=== PATIENT | female | born 1945 | race Caucasian/White ===

== ENCOUNTER 2019-02-25 15:04 | Inpatient (IN) ==
[2019-02-26] MEDS ORDERED: *HR* LORazepam 0.5 MG TABLET PO PRN (11:44)
[2019-02-26] MEDS ORDERED: *HR* Methotrexate 2.5 MG TABLET PO SCH (11:45)
[2019-02-26] MEDS ORDERED: Magic Mouthwash 10 ML UD Cup PO PRN (11:50)
[2019-02-26] MEDS ORDERED: Hyoscyamine SL 0.125 MG TAB.SUBL SL PRN (11:53)
--- NOTE | 2019-02-26 12:35 | Pallative History & Physical ---
<Poornima Castillo B - Last Filed: 02/26/19 16:04> Date of Encounter: 02/26/19 Time of Encounter: 12:05 Assessment and Plan (1) Palliative care encounter Current visit: Yes Status: Acute Patient admitted for 5 day stay respite care at this time - Home medications were restarted - Patient has had a decreased appetite over the last 3 days, this may be due to a progression of the patient's current disease process. Patient was encouraged to eat only when she felt like she wanted to eat something - Patient's pain is currently well controlled on her home medications - Patient is a DNR-CCA (2) Lung cancer Current visit: No Status: Chronic Qualifiers: Laterality: left Lung location: hilum of lung Qualified Code(s): C34.02 - Malignant neoplasm of left main bronchus (3) COPD (chronic obstructive pulmonary disease) Current visit: No Status: Chronic Qualifiers: Qualified Code(s): J44.9 - Chronic obstructive pulmonary disease, unspecified (4) Dyspnea Current visit: No Status: Chronic Qualifiers: Dyspnea type: unspecified Qualified Code(s): R06.00 - Dyspnea, unspecified (5) Hypoxia Current visit: No Status: Chronic (6) Hypertension Current visit: No Status: Chronic Qualifiers: Hypertension type: essential hypertension Qualified Code(s): I10 - Essential (primary) hypertension (7) Hypothyroidism Current visit: No Status: Chronic Qualifiers: Hypothyroidism type: unspecified Qualified Code(s): E03.9 - Hypothyroidism, unspecified Internal Medicine - H&P: HPI Chief complaint: Resite Care Admitted From: Home Plans for Post Hospital Care: Hospice - Home History of present illness: Ms. Crowell is a 73 year old female who is a patient of [facility] care with a past medical history of left lung cancer, end stage COPD, respiratory failure with hypoxia, hypothyroidism, and HTN, presenting today for respite care. SHe reports that overall she is doing ok. She denies any pain concerns at this time. She reports that she is using nasal cannula at home with a level of 3-5. SHe reports that she always has issues with her breathing however it has not changed from her baseline level. She denies chest pain. She does report some nausea at times but denies vomiting. She reports that she has had a decreased ap petite and that she has not eaten for the last 3 days. She says she has decreased the amount of ensure that she has been taking. She reports that prior she was not eating well, but would eat things like pudding, jello and apple sauce. Past Med Surg Social Fam HX - Past Medical History Medical history: arthritis, cancer, COPD, GERD, RA, thyroid disease Psychiatric history: no psych history - Past Surgical History Surgical History: appendectomy, cholecystectomy Additional surgical history: Carpal Tunnel - Social History Smoking Status: Current every day smoker Alcohol use: none Drug use: none - Family History Mother History Unknown: Yes Internal Medicine - H&P: Meds RX: Albuterol Sulfate [Proair Hfa] 1 puff IH Q6-8H PRN 07/13/18 [History] RX: Alendronate Sodium [Fosamax] 70 mg PO BLEVINS 07/13/18 [History] RX: Atenolol [Tenormin] 50 mg PO DAILY 07/13/18 [History] RX: Folic Acid 1 mg PO DAILY 07/13/18 [History] RX: Hydroxychloroquine [Plaquenuil] 400 mg PO DAILY 07/13/18 [History] RX: Methotrexate [Otrexup] 20 mg PO FR 07/13/18 [History] RX: Umeclidinium [place] [Incruse Ellipta] 1 puff IH DAILY 07/13/18 [History] RX: hydroCHLOROthiazide [Hydrochlorothiazide] 25 mg PO DAILY 07/13/18 [History] RX: Fluticasone/Salmeterol [Advair 250-50 Diskus] 1 puff PO BID 07/14/18 [History] RX: Levothyroxine [Synthroid] 100 mcg PO QAM 07/14/18 [History] RX: Albuterol Neb [Proventil Neb] 2.5 mg IH Q6H PRN 01/30/19 [History] RX: LORazepam [Ativan] 0.5 mg PO TID PRN 01/30/19 [History] RX: Lactose-Reduced Food [Ensure Liquid] 1 bottle PO BID 01/30/19 [History] RX: Magic Mouthwash [Magic Mouthwash BLM] 5 ml PO QID PRN 01/30/19 [History] RX: Morphine Oral CONC [Roxanol] 5 - 20 mg PO Q1H PRN 01/30/19 [History] RX: Potassium Chloride [K-Tab ER] 10 meq PO BID 01/30/19 [History] RX: dexAMETHasone [Decadron] 4 mg PO DAILY PRN 01/30/19 [History] RX: traZODone [TraZODone] 50 mg PO HS 01/30/19 [History] RX: Ciprofloxacin [Cipro] 500 mg PO BID 5 Days #10 tablet 01/31/19 [Rx] RX: Nystatin [Nystatin Suspension] 5 ml PO QID 5 Days #20 oral.susp 01/31/19 [Rx] Allergy/AdvReac Type Severity Reaction Status Date / Time No Known Allergies Allergy Unverified 03/04/15 13:53 - Constitutional Constitutional ROS PAL: decreased appetite, anorexia - EENT Eyes: no pain Ears, nose, mouth, throat: no mouth pain - Cardiovascular Cardiovascular ROS: no chest pain - Respiratory Respiratory: dyspnea - Gastrointestinal Gastrointestinal: nausea, no abdominal pain, no diarrhea, no vomiting - Musculoskeletal Musculoskeletal ROS IM: muscle weakness - Integumentary ROS Integumentary: no dry skin - Neurological Neurological ROS: no confusion Palliative Care-Exam - Constitutional General appearance: Present: no acute distress, thin - Head Head Exam: Present: atraumatic, normocephalic - Eye Eye exam: Present: normal appearance - ENT ENT exam: Present: mucous membranes moist - Neck Neck exam: Present: full ROM - Respiratory Respiratory exam: Present: decreased breath sounds, wheezes - Cardiovascular Cardiovascular exam: Present: RRR, +S1, +S2 - GI/Abdominal Exam GI/Abdominal exam: Present: soft. Absent: tenderness - Rectal Rectal exam: Present: deferred - Extremities Exam Extremities exam: Absent: pedal edema - Neurological Exam Neurological exam: Present: alert, oriented X3 Palliative Quality Palliative Quality: Screen for Code Status: Yes, Screen for Goals of Care: Yes, Screen for Pain: Yes, Screen for Nausea/Vomitting: Yes Code Status: 02/26/19 11:39 Resuscitation Status: Active [RES] Routine Comment: Resuscitation Status: DNR-Comfort Care-Arrest <Laura Norris - Last Filed: 02/27/19 09:54> Date of Encounter: 02/27/19 Internal Medicine - H&P: HPI History of present illness: Ms. Crowell is a 73 year old female Palliative Care-Exam - Constitutional Vitals: Temp Pulse Resp BP Pulse Ox 98.2 F 117 24 126/82 60 02/27/19 06:44 02/27/19 06:44 02/27/19 07:38 02/27/19 06:44 02/27/19 07:38 Palliative Quality Code Status: 02/26/19 11:39 Resuscitation Status: Active [RES] Routine Comment: Resuscitation Status: DNR-Comfort Care-Arrest - Attending Attestation I examined this patient and my medical decision-making was reviewed with the Resident Physician. I agree with the documented findings, disposition and treatment plan as described except to the extent set forth below. We independently had [id number] contact with the patient Linda Crowell is a 73 y.o F with hospice diagnosis of Left lung cancer, admitted to [facility] due to caregiver fatigue. 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 An indwelling maldonado was placed and she was discharged on PO ABX. Patient today appears more lethargic, complaining of poor appetite and weakness. at the bedside confirmed a steady decline. Will continue comfort measures per home medications.
[2019-02-26] MEDS: Nystatin SUSP 5 ML UD.LIQ PO SCH ×3 (14:29→21:52)
[2019-02-26] MEDS ORDERED: Stomatitis Mixture 5 ML UDC PO PRN (14:44)
[2019-02-26] MEDS: Albuterol 2.5 MG/3 ML NEBULIZER IH PRN (17:33)
[2019-02-26] MEDS: Budesonide/Formoterol 80/4.5 1 PUFF INH IH SCH (19:54)
[2019-02-26] MEDS: traZODone 50 MG TABLET PO SCH (21:52)
[2019-02-27] MEDS: Albuterol 2.5 MG/3 ML NEBULIZER IH PRN (00:46)
[2019-02-27] MEDS: Budesonide/Formoterol 80/4.5 1 PUFF INH IH SCH ×3 (07:38→20:05)
[2019-02-27] MEDS: Tiotropium 18 MCG inhalation IH SCH (07:38)
--- NOTE | 2019-02-27 10:01 | Palliative Progress Note ---
Date of Encounter: 02/27/19 Time of Encounter: 08:15 - Assessment and plan (1) Hospice care Current Visit: Yes Status: Acute Assessment and plan: Patient to be transitioned to GIP level of care for management of dyspnea and frequent medication adjustment and dosing. [facility] nurse Rena Beach made aware. (2) Dyspnea Current Visit: No Status: Chronic Assessment and plan: -patient wants to wait until her arrives before any changes. Will reduce oxygen slowly to avoid prolonging her dying process, and medicate her SOB with oppioids -morphine 10mg q1hr in place -will add ativan 1mg q2hrs. Qualifiers: Dyspnea type: unspecified Qualified Code(s): R06.00 - Dyspnea, unspecified (3) Goals of care, counseling/discussion Current Visit: No Status: Acute Assessment and plan: Expressed to pt the concern that she was dying from respiratory failure and was still DNRCCA. Patient did not seem to understand the difference in code status, however she confirmed that she would like to be kept comfortable and peacefully, with no machines and no CPR. Code status changed to DNRCC. (4) COPD (chronic obstructive pulmonary disease) Current Visit: No Status: Chronic Qualifiers: Qualified Code(s): J44.9 - Chronic obstructive pulmonary disease, unspecified (5) Hypertension Current Visit: No Status: Chronic Qualifiers: Hypertension type: essential hypertension Qualified Code(s): I10 - Essential (primary) hypertension (6) Hypothyroidism Current Visit: No Status: Chronic Qualifiers: Hypothyroidism type: unspecified Qualified Code(s): E03.9 - Hypothyroidism, unspecified (7) Lung cancer Current Visit: No Status: Chronic Qualifiers: Laterality: left Lung location: hilum of lung Qualified Code(s): C34.02 - Malignant neoplasm of left main bronchus - Time Spent With Patient Total time spent is greater than 50% in coordination of care (as documented) at patient's floor/unit and/or counseling patient: Greater than 35 minutes - Subjective Interval history: Notified by nurse that pt's 02 Sat was 60 on her usual 4l/minute, it was increased to 15L and 02sat improved to about 88. At the time of exam, pt was tachypneic and using accessory muscles, Morphine 10mg was given, with some improvement. She was AAOx3. Expressed the concern that pt is actively dying, and may need more medication, that may result in drowsiness. Patient requested her to be called, and would like to say goodbye to him before getting more medication. Will change level of care to [facility] for management of dyspnea and frequent medication dosing and changes. - Constitutional Exam: - Constitutional General appearance: Present: no distress due to SOB, cachetic - Head Head Exam: Present: atraumatic, normocephalic - Eye Eye exam: Present: normal appearance - ENT ENT exam: Present: mucous membranes dry - Respiratory Respiratory exam: Present: decreased breath sounds, wheezes - Cardiovascular Cardiovascular exam: Present: RRR, +S1, +S2 - GI/Abdominal Exam GI/Abdominal exam: Present: soft. Absent: tenderness - Extremities Exam Extremities exam: Absent: pedal edema - Neurological Exam Neurological exam: Present: alert, oriented X3 Palliative Quality Palliative Quality: Screen for Code Status: Yes, Screen for Goals of Care: Yes, Screen for Pain: Yes, Screen for Nausea/Vomitting: Yes Code Status: 02/26/19 11:39 Resuscitation Status: Active [RES] Routine Comment: Resuscitation Status: DNR-Comfort Care-Arrest Palliative Scale - Palliative Performance Scale How ambulatory is this patient?: Totally bed bound What is patient's level of activity and evidence of disease?: Unable to do most activity, Extensive disease How much self-care assistance does patient require?: Total care How much oral intake does the patient have?: Minimal to sips What is this patient's level of consciousness?: Full Palliative Performance Score: 20 % Consult Discharge Plan - Plan Referrals: Saritha Bob, MECHANICAL PRODUCT ENGINEER [Primary Care Provider] -
[2019-02-27] MEDS ORDERED: *HR* LORazepam 1 MG TABLET PO PRN (10:25)
[2019-02-27] MEDS: dexAMETHasone 4 MG TABLET PO SCH (12:19)
[2019-02-27] MEDS: Nystatin SUSP 5 ML UD.LIQ PO SCH ×4 (12:20→20:03)
[2019-02-27] MEDS: traZODone 50 MG TABLET PO SCH (20:03)
[2019-02-28 07:04] VITALS: BP 86/53
[2019-02-28] MEDS: Tiotropium 18 MCG inhalation IH SCH (07:27)
[2019-02-28] MEDS: Budesonide/Formoterol 80/4.5 1 PUFF INH IH SCH (07:27)
[2019-02-28] MEDS: Nystatin SUSP 5 ML UD.LIQ PO SCH (07:55)
[2019-02-28] MEDS: dexAMETHasone 4 MG TABLET PO SCH (07:55)
--- NOTE | 2019-02-28 09:38 | Palliative Progress Note ---
Date of Encounter: 02/28/19 Time of Encounter: 08:50 - Assessment and plan (1) Dyspnea Current Visit: No Status: Chronic Assessment and plan: Patient breathing is shallow but she appears in no distress. Oxygen remains at 4LPM. She utilized Roxanol x 4 doses last 24 hours. Monitor Qualifiers: Dyspnea type: unspecified Qualified Code(s): R06.00 - Dyspnea, unspecified (2) Anxiety Current Visit: No Status: Acute Assessment and plan: Appears calm and not anxious. Has Lorazepam available PRN. (3) Lung cancer Current Visit: No Status: Chronic Qualifiers: Laterality: left Lung location: hilum of lung Qualified Code(s): C34.02 - Malignant neoplasm of left main bronchus (4) Acute on chronic respiratory failure with hypoxia and hypercapnia Current Visit: No Status: Acute (5) Palliative care encounter Current Visit: Yes Status: Acute (6) Hospice care Current Visit: Yes Status: Acute Assessment and plan: Appears actively dying. Family aware and at bedside. - Time Spent With Patient Total time spent is greater than 50% in coordination of care (as documented) at patient's floor/unit and/or counseling patient: 25 - 35 minutes - Subjective Interval history: Patient minimally responsive, shallow breathing with periods of apnea. Increasingly hypotensive this am. Family at bedside. - Constitutional General appearance: Present: no acute distress - Respiratory Additional comments: Breath sounds shallow and irregular with periods of apnea. Breath sounds clear. - Cardiovascular Cardiovascular exam: Present: irregular rhythm - GI/Abdominal GI/Abdominal exam: Present: soft - Additional comments: Curran draining urine mixed with stool - Extremities Exam Extremities exam: Present: normal capillary refill, normal inspection - Neurological Exam Additional comments: Minimally responsive to tactile stimuli. Nonverbal, does not follow commands - Skin Skin exam: Present: dry, pallor, warm Palliative Quality Palliative Quality: Screen for Code Status: Yes, Screen for Goals of Care: Yes, Screen for Pain: Yes, Screen for Nausea/Vomitting: Yes Code Status: 02/26/19 11:39 Resuscitation Status: Active [RES] Routine Comment: Resuscitation Status: DNR-Comfort Care-Arrest 02/27/19 10:25 Resuscitation Status: Active [RES] Routine Comment: Resuscitation Status: DNR-Comfort Care Palliative Scale - Palliative Performance Scale How ambulatory is this patient?: Totally bed bound What is patient's level of activity and evidence of disease?: Unable to do most activity, Extensive disease How much self-care assistance does patient require?: Total care How much oral intake does the patient have?: Minimal to sips What is this patient's level of consciousness?: Full Palliative Performance Score: 20 % Consult Discharge Plan - Plan Referrals: Saritha Bob, PROFESSIONAL SHOPPER [Primary Care Provider] -
[2019-02-28] MEDS: Morphine Sulfate Oral CONC 10 MG/0.5 ML ORAL.SYG SL PRN ×4 (12:25→19:11)
[2019-03-03] MEDS ORDERED: *HR* Methotrexate 2.5 MG TABLET PO SCH (09:00)
--- NOTE | 2019-03-03 15:32 | Death Note ---
Discharge Sum: Summary - Date and Time Date of admission: 02/26/19 11:10 Date of : 02/28/19 Time of : 19:30 - Summary Details: Linda Crowell is a 73 y.o F with hospice diagnosis of Left lung cancer, originally admitted to respite due to caregiver fatigue. Patient had a decline and became hypoxic on day#2, entering the dying phase. She was transitioned to [facility] and peacefully. - Additional Data Confirmation of as documented by pronouncing clinician: no pulse, no respirations, no heart sounds, pupils fixed and dilated Family: at bedside Attending/PCP notified?: Yes Attending physician: Laura Norris MD Was code activated?: No Autopsy requested?: No forensic science examiner notified?: Yes Organ bank notified?: Yes Advance directives: Yes Hospice patient?: Yes Discharge Sum: Diag - PCOD Probable Cause of : Respiratory arrest Discharge Sum: Prov - Provider Primary care physician: Saritha Bob CNP Admitting clinician: Laura Norris Attending physician on admission: Laura Norris Consults: 02/26/19 11:39 Consult to Palliative Care [CONS] Routine Comment: Consulting Provider: Palliative Care Jayna Reason for Consult: RESPITE Call Completed: Yes
== END 2019-02-28 22:28 | disposition expired | DRG 951 ==
LOC: 2ANU 02-26 11:10
PROVIDERS: ADMIT Internal Medicine Hospice and Palliative Medicine; ATTEND Internal Medicine Hospice and Palliative Medicine